=== PATIENT | male | born 1985 | race African-American/Black ===

== ENCOUNTER 2016-08-31 06:06 | Emergency (ER) | payer MEDICAID, OTHER ==
[~2016-08-31] VITALS: Ht 170.2 cm; Wt 84.0 kg
[2016-08-31] MEDS: IBUPROFEN 600MG TABLET PO NR ×2 (08:19→08:49)
[2016-08-31] MEDS ORDERED: LIDOCAINE HCL 1% 20ML VIAL (Pyxis) INJ INFIL NR (08:30)
[2016-08-31] MEDS ORDERED: CEFTRIAXONE SODIUM 1 G/VIAL IM NR (08:30)
[2016-08-31] MEDS ORDERED: LIDOCAINE HCL 1% 20ML VIAL (Pyxis) INJ INFIL ONE (08:30)
[2016-08-31] MEDS ORDERED: CEFTRIAXONE SODIUM 1 G/VIAL IM ONE (08:30)
[2016-08-31 08:49] VITALS: BP 131/85
== END 2016-08-31 08:58 | disposition home or self-care (01) ==
LOC: ER 07:42
DX: L03.211 Cellulitis of face (principal); R03.0 Elevated blood-pressure reading, without diagnosis of hypertension; F17.210 Nicotine dependence, cigarettes, uncomplicated; F12.90 Cannabis use, unspecified, uncomplicated
CPT/HCPCS: 96372; 99283; J0696; J3490

== ENCOUNTER 2016-09-03 11:38 | Emergency (ER) | payer MEDICAID ==
[~2016-09-03] VITALS: Ht 170.2 cm; Wt 86.0 kg
[2016-09-03] MEDS ORDERED: IBUP-1509 PO (11:47)
[2016-09-03] MEDS ORDERED: SULF1TAB48 PO (11:47)
[2016-09-03] MEDS ORDERED: CEPH500C2 PO (11:47)
[2016-09-03] MEDS ORDERED: LIDOCAINE HCL 1%/EPI 1:200,000 30 ML VIAL MC ONE (13:45)
[2016-09-03] MEDS ORDERED: BACITRACIN ZINC OINT UDPKT TOP ONE (13:45)
[2016-09-03] MEDS ORDERED: KETOROLAC 60MG/2ML VIAL IM ONE (13:45)
[2016-09-03 14:07] VITALS: BP 119/44
== END 2016-09-03 15:21 | disposition home or self-care (01) ==
LOC: ER 13:49
DX: L02.01 Cutaneous abscess of face (principal); F17.200 Nicotine dependence, unspecified, uncomplicated; F12.10 Cannabis abuse, uncomplicated; Z79.899 Other long term (current) drug therapy
CPT/HCPCS: 10060; 96372; 99283; J1885; Z7610; 67700; 99284

== ENCOUNTER 2018-05-25 19:12 | Emergency (ER) | payer OTHER ==
[~2018-05-25] VITALS: Ht 172.7 cm; Wt 88.0 kg
[~2018-05-25 19:12] MED LIST: CEPH500C2 PO; IBUP-2028 PO; SULF1TAB48 PO
[2018-05-26] MEDS ORDERED: LIDOCAINE HCL 1% 20ML VIAL (Pyxis) INJ INFIL ONE
[2018-05-26 01:51] VITALS: BP 140/89
== END 2018-05-26 01:57 | disposition home or self-care (01) ==
LOC: ER 19:12
DX: S90.02XA Contusion of left ankle, initial encounter (principal); F12.10 Cannabis abuse, uncomplicated; F17.200 Nicotine dependence, unspecified, uncomplicated; Z79.899 Other long term (current) drug therapy; Z98.890 Other specified postprocedural states; X58.XXXA Exposure to other specified factors, initial encounter; Y93.89 Activity, other specified; Y92.89 Other specified places as the place of occurrence of the external cause; Y99.8 Other external cause status
CPT/HCPCS: 29515; 99283; J3490

== ENCOUNTER 2020-08-21 20:54 | Emergency (ER) | payer OTHER ==
[~2020-08-21] VITALS: Ht 172.7 cm; Wt 86.3 kg
[2020-08-21] MEDS ORDERED: IBUPROFEN 600MG TABLET PO ONE (23:45)
[2020-08-22] MEDS ORDERED: IBUP-2028 PO (00:21)
[2020-08-22 01:12] VITALS: BP 141/71
== END 2020-08-22 01:12 | disposition home or self-care (01) ==
LOC: ER 20:54
DX: R07.89 Other chest pain (principal); M54.5 Low back pain; F12.10 Cannabis abuse, uncomplicated; F14.10 Cocaine abuse, uncomplicated; J45.909 Unspecified asthma, uncomplicated; Z98.890 Other specified postprocedural states
CPT/HCPCS: 71045; 99283

== ENCOUNTER 2021-02-17 13:34 | Emergency (ER) | payer OTHER ==
[~2021-02-17] VITALS: Ht 175.3 cm; Wt 77.0 kg
[2021-02-17] MEDS ORDERED: NALOXONE HCL 0.4 MG/ML 1ML VIAL IV ONE ×2 (13:45→15:15)
[2021-02-17] MEDS ORDERED: SODIUM CHLORIDE 0.9% 1,000 ML IV ONE (13:45)
[2021-02-17] MEDS ORDERED: NALOXONE HCL 0.4 MG/ML 1ML VIAL ONE (13:48)
[2021-02-17 14:11] LABS: BASOPHILS % 0.6 % (0.0-2.0); EOSINOPHILS % 0.5 % (0.0-5.0); HEMATOCRIT. 42.6 % (42.0-52.0); HEMOGLOBIN. 13.3 g/dL (14.0-18.0); LYMPHOCYTES % 18.3 % (20.0-50.0); MEAN CORPUSCULAR VOLUME 73.6 fL (80.0-94.0); MEAN PLATELET VOLUME 7.2 fl (7.4-10.4); MONOCYTES % 4.6 % (2.0-8.0); PLATELET 319 x1000/uL (130-400); RED BLOOD CELL COUNT 5.79 mill/uL (4.7-6.1); RED CELL DISTRIBUTION WIDTH 16.5 % (11.6-14.6)
[2021-02-17 14:17] LABS: CHLORIDE 106 mEq/L (98-107)
[2021-02-17 14:22] LABS: ETHANOL BLOOD 210 mg/dL
[2021-02-17] MEDS ORDERED: POTASSIUM CHLORIDE 20MEQ TABLET SR PO ONE (15:30)
[2021-02-17] MEDS ORDERED: NALO4SPR BOTHNSTRLS (15:42)
[2021-02-17 19:06] VITALS: BP 136/98
[2021-02-17 19:14] LABS: CLARITY URINE CLEAR (CLEAR); COLOR URINE YELLOW (YELLOW); KETONES URINE NEGATIVE (NEGATIVE); LEUKOCYTE ESTERASE URINE NEGATIVE (NEGATIVE); NITRITE URINE NEGATIVE (NEGATIVE); OCCULT BLOOD URINE 1+ (NEGATIVE); PROTEIN URINE 1+ (NEGATIVE); SPECIFIC GRAVITY URINE 1.015 (1.005-1.030); UROBILINOGEN URINE 0.2 E.U./dL (0.2-1.0)
[2021-02-17 19:49] LABS: *AMPHETAMINES SCREEN URINE NEGATIVE (NEGATIVE); *BARBITURATES SCREEN URINE NEGATIVE (NEGATIVE); *BENZODIAZEPINES SCREEN URINE NEGATIVE (NEGATIVE); *COCAINE SCREEN URINE PRESUMTIVE POSITIVE (NEGATIVE)
[2021-02-17 19:50] LABS: CANNABINOID URINE SCREEN PRESUMTIVE POSITIVE (NEGATIVE); METHADONE URINE SCREEN NEGATIVE (NEGATIVE); OPIATES URINE SCREEN NEGATIVE (NEGATIVE); PHENCYCLIDINE URINE SCREEN NEGATIVE (NEGATIVE)
== END 2021-02-17 20:21 | disposition home or self-care (01) ==
LOC: ER 13:34
DX: T15.91XA Foreign body on external eye, part unspecified, right eye, initial encounter (principal); I49.9 Cardiac arrhythmia, unspecified; Y92.9 Unspecified place or not applicable
CPT/HCPCS: 36415; 80053; 80305; 80320; 81003; 85025; 93005; 96361; 96374; 96376; 99284; J2310; J7030; Z7610; G0480

== ENCOUNTER 2023-06-13 00:03 | Emergency (ER) | payer MEDICAID, OTHER ==
[~2023-06-13] VITALS: Ht 172.7 cm; Wt 87.2 kg
[~2023-06-13 00:03] MED LIST changes: +NALO4SPR BOTHNSTRLS
[2023-06-13 01:32] LABS: BASOPHILS % 1.3 % (0.0-2.0); DIFFERENTIAL COMMENT 0; EOSINOPHILS % 0.9 % (0.0-5.0); HEMATOCRIT. 43.8 % (42.0-52.0); HEMOGLOBIN. 14.5 g/dL (14.0-18.0); LYMPHOCYTES % 30.2 % (20.0-50.0); MEAN CORPUSCULAR HEMOGLOBIN 23.4 pg (28.0-32.0); MEAN CORPUSCULAR VOLUME 70.8 fL (80.0-94.0); MEAN PLATELET VOLUME 8.4 fl (7.4-10.4); MONOCYTES % 8.7 % (2.0-8.0); NEUTROPHILS % 58.9 % (40.0-76.0); PLATELET 284 x1000/uL (130-400); RED BLOOD CELL COUNT 6.19 mill/uL (4.7-6.1); RED CELL DISTRIBUTION WIDTH 16.8 % (11.6-14.6); WHITE BLOOD COUNT 8.4 x1000/uL (4.5-11.0)
[2023-06-13 01:46] LABS: ALANINE AMINOTRANSFERASE 29 IU/L (10-49); ALBUMIN 4.8 g/dL (3.2-4.8); ASPARTATE AMINOTRANSFERASE 35 IU/L (<34); BILIRUBIN TOTAL 0.8 mg/dL (0.1-1.0); CALCIUM 8.9 mg/dL (8.7-10.4); CARBON DIOXIDE 20 mEq/L (21-32); CHLORIDE 101 mEq/L (98-107); GLUCOSE 91 mg/dL (70-105); POTASSIUM 3.6 mEq/L (3.5-5.1); SODIUM 136 mEq/L (136-145); UREA NITROGEN BLOOD 17 mg/dL (9-23)
[2023-06-13 01:53] LABS: TROPONIN I HIGH SENSITIVITY < 4 ng/L (3.0-53)
[2023-06-13] MEDS: ALBUTEROL (0.083%) 2.5MG/3ML NEB HHN STA (06:56)
[2023-06-13] MEDS: IPRATROPIUM BROMIDE (0.02%) 0.5MG/2.5ML NEB HHN STA (06:56)
[2023-06-13] MEDS ORDERED: PREDNISONE 20MG TABLET PO STA (06:56)
[2023-06-13 07:52] LABS: TROPONIN I HIGH SENSITIVITY 7 ng/L (3.0-53)
[2023-06-13] MEDS: ALBUTEROL (0.083%) 2.5MG/3ML NEB HHN NR (09:00)
[2023-06-13 09:25] VITALS: PULSE 90; RESP 18; O2SAT 97
[2023-06-13] MEDS: IPRATROPIUM BROMIDE (0.02%) 0.5MG/2.5ML NEB HHN NR (09:25)
[2023-06-13] MEDS ORDERED: P50 PO (09:43)
[2023-06-13] MEDS ORDERED: ALBU6.7H15 INH (09:43)
[2023-06-13] MEDS: PREDNISONE 20MG TABLET PO NR (10:11)
[2023-06-13 11:47] VITALS: BP 141/88; PULSE 79; RESP 18; TEMP 98
== END 2023-06-13 11:50 | disposition home or self-care (01) ==
LOC: ER 00:45
DX: J45.901 Unspecified asthma with (acute) exacerbation (principal); B34.9 Viral infection, unspecified; F14.90 Cocaine use, unspecified, uncomplicated; F12.90 Cannabis use, unspecified, uncomplicated; F10.20 Alcohol dependence, uncomplicated; Z98.890 Other specified postprocedural states; Y90.9 Presence of alcohol in blood, level not specified
CPT/HCPCS: 80053; 85025; 84484; 36415; 71045; 93005; 94644; 99285; J7512; Z7610 ×3